=== PATIENT | male | born 1975 | race African-American/Black ===

== ENCOUNTER 2021-01-30 06:03 | Inpatient (IN) ==
[2021-01-24 11:28] LABS: Basophils # 0.1 10*3/uL (0.0-0.2); Basophils % 1.1 % (0.0-0.8); Eosinophils # 0.3 10*3/uL (0.0-0.87); Eosinophils % 6.2 % (0.00-10.9); Hematocrit 41.9 VOL% (42.0-52.0); Hemoglobin 13.1 GM/DL (14.0-18.0); Immature Granulocytes % 0.2 %; Immature Granulocytes Absolute 0.01 #; Lymphocytes # 2.8 10*3/uL (1.4-4.0); Mean Corpuscular HGB Conc 31.3 GM/DL (32-36); Mean Corpuscular Volume 87.7 FL (87-102); Mean Platelet Volume 10.6 FL (9.6-12.0); Monocytes % 5.6 % (1.7-12.7); Neutrophils % 36.9 % (38.7-73.9); Platelet Count 328 T/CUMM (130-400); Red Blood Count 4.78 MC/CUMM (3.8-5.5); White Blood Count 5.5 T/CUMM (4-12)
[2021-01-24 11:47] LABS: Albumin 4.1 G/DL (3.4-5.0); Bilirubin,Total 0.4 MG/DL (0.20-1.00); Calcium 9.4 MG/DL (8.5-10.1); Osmolality,Calculated 268.2 MOS/KG (273-304); Potassium 4.6 MMOL/L (3.5-5.1); Total Protein 8.1 G/DL (6.4-8.2)
[2021-01-24 11:48] LABS: Atypical Lymphocytes Few; Eosinophils 5 % (0-10); Hypochromasia 2+; Lymphocytes 50 % (20-55); Microcytosis Slight; Ovalocytes Few; Platelet Estimate Normal; Polychromasia Slight; Segmented Neutrophils 33 % (50-85); Total Cells Counted 100
[2021-01-30] MEDS ORDERED: FAMOTIDINE 20 MG TABLET PO ONE (06:23)
[2021-01-30] MEDS ORDERED: ALBUTEROL 2.5 MG/3 ML NEB RESP TX ONE (06:23)
[2021-01-30] MEDS ORDERED: DIAZEPAM 5 MG TABLET PO ONE (06:23)
[2021-01-30] MEDS ORDERED: cefTRIAXone 1,000 MG in SODIUM CHLORIDE 0.9% 100 ML IV ONE (06:30)
[2021-01-30] MEDS ORDERED: MIDAZOLAM 2 MG/2 ML VIAL ONE (06:32)
[2021-01-30] MEDS ORDERED: fentaNYL 100 MCG/2 ML VIAL ONE ×2 (06:32→08:36)
[2021-01-30] MEDS: LACTATED RINGERS 1,000 ML IV SCH ×2 (06:45→08:01)
[2021-01-30] MEDS ORDERED: PHENYLEPHRINE 10 MG/1 ML VIAL IV ONE (07:46)
[2021-01-30 08:30] LABS: Bilirubin,Urine Negative (Negative); Blood, Urine Negative (Negative); Glucose,Urine (UA) Negative (Negative); Ketones,Urine Negative (Negative); Mucus,Urine Occasional /LPF (Occasional); Nitrite,Urine Negative (Negative); Protein,Urine Negative; RBC,Urine 1 /HPF (0-4); Urine Appearance CLEAR (Clear); Urine Color Straw (Yellow); Urine Urobilinogen < 2.0 EU/DL (0.2-1.0)
[2021-01-30] MEDS ORDERED: propofoL 200 MG/20 ML VIAL IV ONE (08:36)
[2021-01-30] MEDS ORDERED: DEXAMETHASONE 4 MG/1 ML VIAL ONE (08:36)
[2021-01-30] MEDS ORDERED: ROCURONIUM 50 MG/5 ML VIAL IV ONE ×2 (08:36→09:15)
[2021-01-30] MEDS ORDERED: SEVOFLURANE 1 UNIT/15 MINUTE INH ONE (08:36)
[2021-01-30] MEDS ORDERED: LIDOCAINE 2% 5 ML VIAL ONE (08:36)
[2021-01-30] MEDS ORDERED: GLYCOPYRROLATE 0.4 MG/2 ML VIAL ONE ×2 (08:36→11:11)
[2021-01-30] MEDS ORDERED: ONDANSETRON 4 MG/2 ML VIAL ONE (08:36)
[2021-01-30] MEDS ORDERED: ACETAMINOPHEN INJ 1,000 MG/100 ML VIAL IV ONE (08:36)
[2021-01-30] MEDS ORDERED: NEOSTIGMINE 10 MG/10 ML VIAL ONE (11:11)
[2021-01-30] MEDS ORDERED: ROPIVACAINE 0.5% 30 ML VIAL ONE (11:15)
[2021-01-30] MEDS ORDERED: PROMETHAZINE 25 MG/1 ML VIAL IM PRN (11:23)
[2021-01-30] MEDS ORDERED: MAGNESIUM HYDROXIDE SUSP 30 ML UDCUP PO PRN (11:23)
[2021-01-30] MEDS ORDERED: HYDROmorphone 2 MG/1 ML VIAL IV PRN (11:23)
[2021-01-30] MEDS ORDERED: ONDANSETRON 4 MG/2 ML VIAL IV PRN (11:23)
[2021-01-30] MEDS ORDERED: LACTULOSE 20 GM/30 ML UDCUP PO PRN (11:23)
[2021-01-30] MEDS ORDERED: diphenhydrAMINE 50 MG/1 ML VIAL IV PRN (11:23)
[2021-01-30] MEDS ORDERED: FLUTICASONE 50 MCG NASAL SPRAY 16 GM BOTTLE BOTH NARES PRN (11:27)
[2021-01-30] MEDS ORDERED: ALBUTEROL 2.5 MG/3 ML NEB RESP TX PRN (11:27)
[2021-01-30] MEDS ORDERED: ALBUTEROL/IPRATROPIUM 3 ML NEB RESP TX PRN (11:28)
[2021-01-30] MEDS ORDERED: MEPERIDINE 25 MG/1 ML VIAL ONE (12:11)
[2021-01-30] MEDS: MEPERIDINE 25 MG/1 ML VIAL IV PRN ×2 (12:14→12:40)
[2021-01-30] MEDS ORDERED: hydrALAZINE 25 MG TABLET PO PRN (12:42)
[2021-01-30] MEDS ORDERED: hydrALAZINE 20 MG/1 ML VIAL ONE (12:49)
[2021-01-30] MEDS ORDERED: hydrALAZINE 20 MG/1 ML VIAL IV ONE (12:52)
[2021-01-30 13:14] LABS: Basophils % 0.2 % (0.0-0.8); Eosinophils % 0.2 % (0.00-10.9); Hematocrit 40.7 VOL% (42.0-52.0); Hemoglobin 12.7 GM/DL (14.0-18.0); Immature Granulocytes % 0.4 %; Immature Granulocytes Absolute 0.07 #; Lymphocytes # 1.7 10*3/uL (1.4-4.0); Lymphocytes % 10.2 % (21.2-54.2); Mean Corpuscular HGB Conc 31.2 GM/DL (32-36); Mean Corpuscular Volume 87.3 FL (87-102); Mean Platelet Volume 10.2 FL (9.6-12.0); Monocytes % 3.3 % (1.7-12.7); Neutrophils % 85.7 % (38.7-73.9); Platelet Count 262 T/CUMM (130-400); Red Blood Count 4.66 MC/CUMM (3.8-5.5); Red Cell Distribution Width 12.2 % (9.3-17.3); White Blood Count 16.2 T/CUMM (4-12)
[2021-01-30 13:31] LABS: Calcium 9.1 MG/DL (8.5-10.1); Osmolality,Calculated 276.8 MOS/KG (273-304); Potassium 4.2 MMOL/L (3.5-5.1)
[2021-01-30] MEDS: ALVIMOPAN 12 MG CAPSULE PO SCH ×2 (14:14→21:38)
[2021-01-30] MEDS: ACETAMINOPHEN 325 MG TABLET PO SCH ×3 (14:14→22:59)
[2021-01-30] MEDS: SODIUM CHLORIDE 0.9% 1,000 ML IV SCH (16:00)
[2021-01-30] MEDS: OXYBUTYNIN 5 MG TABLET PO SCH ×2 (16:00→21:38)
[2021-01-30] MEDS: FLUTICASONE/SALMETEROL 100-50 DISKUS 14 DOSE INH SCH (21:38)
[2021-01-30] MEDS: DOCUSATE SODIUM 100 MG CAPSULE PO SCH (21:38)
[2021-01-30] MEDS: FAMOTIDINE 20 MG TABLET PO SCH (21:38)
[2021-01-31] MEDS: SODIUM CHLORIDE 0.9% 1,000 ML IV SCH ×2 (00:20→06:17)
[2021-01-31] MEDS: oxyCODONE/ACETAMINOPHEN 5-325 MG TABLET PO PRN ×3 (03:08→19:08)
[2021-01-31 06:04] LABS: Hematocrit 36.6 VOL% (42.0-52.0); Hemoglobin 11.3 GM/DL (14.0-18.0); Immature Granulocytes % 0.6 %; Immature Granulocytes Absolute 0.06 #; Lymphocytes # 0.9 10*3/uL (1.4-4.0); Lymphocytes % 9.1 % (21.2-54.2); Mean Corpuscular HGB Conc 30.9 GM/DL (32-36); Mean Corpuscular Volume 88.2 FL (87-102); Mean Platelet Volume 10.6 FL (9.6-12.0); Monocytes % 9.3 % (1.7-12.7); Platelet Count 270 T/CUMM (130-400); Red Blood Count 4.15 MC/CUMM (3.8-5.5); Red Cell Distribution Width 12.3 % (9.3-17.3); White Blood Count 9.6 T/CUMM (4-12)
[2021-01-31] MEDS: ACETAMINOPHEN 325 MG TABLET PO SCH ×4 (06:17→23:10)
[2021-01-31 06:23] LABS: Calcium 8.6 MG/DL (8.5-10.1); Potassium 4.4 MMOL/L (3.5-5.1)
[2021-01-31] MEDS ORDERED: MAGNESIUM SULF RIDER 4 GM/100 ML PREMIX IV PRN (06:48)
[2021-01-31] MEDS ORDERED: MAGNESIUM SULF RIDER 2 GM/50 ML PREMIX IV PRN (06:48)
[2021-01-31] MEDS: OXYBUTYNIN 5 MG TABLET PO SCH ×3 (08:51→20:48)
[2021-01-31] MEDS: DOCUSATE SODIUM 100 MG CAPSULE PO SCH ×2 (08:51→20:48)
[2021-01-31] MEDS: ALVIMOPAN 12 MG CAPSULE PO SCH ×2 (08:51→20:48)
[2021-01-31] MEDS: FAMOTIDINE 20 MG TABLET PO SCH ×2 (08:51→20:48)
[2021-01-31] MEDS: FLUTICASONE/SALMETEROL 100-50 DISKUS 14 DOSE INH SCH ×2 (08:52→20:52)
[2021-01-31] MEDS: cefTRIAXone 1,000 MG in SODIUM CHLORIDE 0.9% 100 ML IV SCH (08:52)
[2021-02-01] MEDS: ACETAMINOPHEN 325 MG TABLET PO SCH ×3 (04:49→16:40)
[2021-02-01 05:46] LABS: Basophils % 0.2 % (0.0-0.8); Eosinophils % 0.1 % (0.00-10.9); Hematocrit 31.7 VOL% (42.0-52.0); Immature Granulocytes % 0.4 %; Immature Granulocytes Absolute 0.05 #; Mean Corpuscular HGB Conc 31.5 GM/DL (32-36); Mean Corpuscular Volume 86.8 FL (87-102); Mean Platelet Volume 10.7 FL (9.6-12.0); Monocytes % 11.4 % (1.7-12.7); Neutrophils % 70.9 % (38.7-73.9); Platelet Count 235 T/CUMM (130-400); Red Blood Count 3.65 MC/CUMM (3.8-5.5); Red Cell Distribution Width 12.6 % (9.3-17.3); White Blood Count 11.6 T/CUMM (4-12)
[2021-02-01 06:27] LABS: Calcium 8.4 MG/DL (8.5-10.1); Osmolality,Calculated 275.7 MOS/KG (273-304); Potassium 3.8 MMOL/L (3.5-5.1)
[2021-02-01] MEDS ORDERED: ALBUTEROL 2.5 MG/3 ML NEB RESP TX SCH (07:30)
[2021-02-01] MEDS: ALBUTEROL/IPRATROPIUM 3 ML NEB RESP TX SCH ×4 (07:55→19:35)
[2021-02-01] MEDS: cefTRIAXone 1,000 MG in SODIUM CHLORIDE 0.9% 100 ML IV SCH (11:23)
[2021-02-01] MEDS: OXYBUTYNIN 5 MG TABLET PO SCH ×3 (11:23→22:05)
[2021-02-01] MEDS: ALVIMOPAN 12 MG CAPSULE PO SCH ×2 (11:23→22:15)
[2021-02-01] MEDS: FLUTICASONE/SALMETEROL 100-50 DISKUS 14 DOSE INH SCH ×2 (11:23→22:05)
[2021-02-01] MEDS: FAMOTIDINE 20 MG TABLET PO SCH ×2 (11:23→22:04)
[2021-02-01] MEDS: DOCUSATE SODIUM 100 MG CAPSULE PO SCH ×2 (11:23→22:05)
[2021-02-01 13:26] LABS: Hematocrit 32.8 VOL% (42.0-52.0); Hemoglobin 10.1 GM/DL (14.0-18.0)
[2021-02-02] MEDS: ACETAMINOPHEN 325 MG TABLET PO SCH ×2 (00:20→05:16)
[2021-02-02] MEDS: ALBUTEROL/IPRATROPIUM 3 ML NEB RESP TX SCH ×4 (03:11→11:12)
[2021-02-02 05:48] LABS: Basophils # 0.1 10*3/uL (0.0-0.2); Basophils % 0.5 % (0.0-0.8); Eosinophils # 0.1 10*3/uL (0.0-0.87); Eosinophils % 1.1 % (0.00-10.9); Hematocrit 31.3 VOL% (42.0-52.0); Hemoglobin 9.7 GM/DL (14.0-18.0); Immature Granulocytes % 0.4 %; Immature Granulocytes Absolute 0.04 #; Lymphocytes # 2.5 10*3/uL (1.4-4.0); Lymphocytes % 22.7 % (21.2-54.2); Mean Corpuscular Volume 88.4 FL (87-102); Mean Platelet Volume 10.8 FL (9.6-12.0); Monocytes % 11.7 % (1.7-12.7); Neutrophils % 63.6 % (38.7-73.9); Platelet Count 241 T/CUMM (130-400); Red Blood Count 3.54 MC/CUMM (3.8-5.5); Red Cell Distribution Width 12.4 % (9.3-17.3)
[2021-02-02 06:02] LABS: Calcium 8.8 MG/DL (8.5-10.1); Osmolality,Calculated 271.8 MOS/KG (273-304); Potassium 3.5 MMOL/L (3.5-5.1)
[2021-02-02] MEDS ORDERED: POTASSIUM CHLORIDE 20 MEQ TABLET PO ONE (06:45)
[2021-02-02] MEDS: DOCUSATE SODIUM 100 MG CAPSULE PO SCH (08:57)
[2021-02-02] MEDS: OXYBUTYNIN 5 MG TABLET PO SCH (08:57)
[2021-02-02] MEDS: ALVIMOPAN 12 MG CAPSULE PO SCH (08:57)
[2021-02-02] MEDS: FAMOTIDINE 20 MG TABLET PO SCH (08:57)
[2021-02-02] MEDS: cefTRIAXone 1,000 MG in SODIUM CHLORIDE 0.9% 100 ML IV SCH (08:57)
[2021-02-02] MEDS: FLUTICASONE/SALMETEROL 100-50 DISKUS 14 DOSE INH SCH (08:58)
[2021-02-02 12:03] VITALS: BP 129/86
== END 2021-02-02 12:25 | disposition home or self-care (01) | DRG 707 ==
LOC: N.OR 06:03 → N.SDSINP 06:05 → N.3E 13:19
PROVIDERS: ADMIT Surgery; ATTEND Surgery

== ENCOUNTER 2021-02-03 01:55 | Observation (INO) ==
[2021-02-03] MEDS ORDERED: HYDROmorphone 2 MG/1 ML VIAL IV STA (02:16)
[2021-02-03] MEDS ORDERED: ONDANSETRON 4 MG/2 ML VIAL IV ONE (02:16)
[2021-02-03 02:45] LABS: Bacteria,Urine Occasional /HPF (Few); Bilirubin,Urine Negative (Negative); Blood, Urine Large mg/dL (Negative); Glucose,Urine (UA) Negative (Negative); Ketones,Urine Negative (Negative); Mucus,Urine Occasional /LPF (Occasional); Nitrite,Urine Negative (Negative); Protein,Urine 100 MG/DL; RBC,Urine <1 /HPF (0-4); Urine Appearance CLEAR (Clear); Urine Color Yellow (Yellow); Urine Specific Gravity 1.004 (1.001-1.035); Urine Urobilinogen < 2.0 EU/DL (<2.0)
[2021-02-03 02:53] LABS: Basophils # 0.1 10*3/uL (0.0-0.2); Basophils % 0.6 % (0.0-0.8); Eosinophils # 0.3 10*3/uL (0.0-0.87); Eosinophils % 3.1 % (0.00-10.9); Hematocrit 32.2 VOL% (42.0-52.0); Hemoglobin 10.1 GM/DL (14.0-18.0); Immature Granulocytes % 0.4 %; Immature Granulocytes Absolute 0.04 #; Lymphocytes # 2.6 10*3/uL (1.4-4.0); Lymphocytes % 26.3 % (21.2-54.2); Mean Corpuscular HGB Conc 31.4 GM/DL (32-36); Mean Platelet Volume 10.7 FL (9.6-12.0); Monocytes % 10.1 % (1.7-12.7); Neutrophils % 59.5 % (38.7-73.9); Platelet Count 310 T/CUMM (130-400); Red Blood Count 3.66 MC/CUMM (3.8-5.5); Red Cell Distribution Width 12.4 % (9.3-17.3); White Blood Count 9.7 T/CUMM (4-12)
[2021-02-03 03:14] LABS: Albumin 3.1 G/DL (3.4-5.0); Bilirubin,Total 0.4 MG/DL (0.20-1.00); Calcium 8.8 MG/DL (8.5-10.1); Osmolality,Calculated 276.8 MOS/KG (273-304); Total Protein 7.5 G/DL (6.4-8.2)
[2021-02-03] MEDS ORDERED: ALUM/MAG/SIMETH/LIDO VISC 1:1 30 ML BOTTLE PO STA ×2 (03:31→03:33)
[2021-02-03] MEDS ORDERED: PIPERACILLIN/TAZOBACTAM 3,375 MG in SODIUM CHLORIDE 0.9% 100 ML IV STA (03:31)
[2021-02-03] MEDS ORDERED: ALUM/MAG/SIMETH/LIDO VISC 1:1 30 ML BOTTLE PO ONE (03:32)
[2021-02-03] MEDS ORDERED: ONDANSETRON 4 MG/2 ML VIAL IV PRN (03:38)
[2021-02-03] MEDS ORDERED: HYDROmorphone 2 MG/1 ML VIAL IV PRN ×2 (03:38→09:52)
[2021-02-03] MEDS ORDERED: SODIUM CHLORIDE 0.45% 1,000 ML IV SCH (04:00)
[2021-02-03] MEDS ORDERED: oxyCODONE IR 5 MG TABLET PO PRN (09:51)
[2021-02-03] MEDS: ACETAMINOPHEN 325 MG TABLET PO SCH ×3 (10:04→21:51)
[2021-02-03] MEDS: OXYBUTYNIN XL 5 MG TABLET PO SCH (10:04)
[2021-02-03] MEDS: PIPERACILLIN/TAZOBACTAM 3,375 MG in SODIUM CHLORIDE 0.9% 100 ML IV SCH ×2 (14:25→21:00)
[2021-02-03] MEDS: OXYBUTYNIN 5 MG TABLET PO SCH ×2 (14:28→21:48)
[2021-02-03] MEDS: DOCUSATE SODIUM 100 MG CAPSULE PO SCH (21:48)
[2021-02-04] MEDS: ACETAMINOPHEN 325 MG TABLET PO SCH ×2 (04:27→10:02)
[2021-02-04] MEDS: PIPERACILLIN/TAZOBACTAM 3,375 MG in SODIUM CHLORIDE 0.9% 100 ML IV SCH ×2 (04:28→13:16)
[2021-02-04 04:50] LABS: Basophils % 0.6 % (0.0-0.8); Eosinophils # 0.4 10*3/uL (0.0-0.87); Eosinophils % 5.5 % (0.00-10.9); Hematocrit 30.7 VOL% (42.0-52.0); Hemoglobin 9.5 GM/DL (14.0-18.0); Immature Granulocytes % 0.4 %; Immature Granulocytes Absolute 0.03 #; Lymphocytes # 1.9 10*3/uL (1.4-4.0); Lymphocytes % 27.4 % (21.2-54.2); Mean Corpuscular HGB Conc 30.9 GM/DL (32-36); Mean Corpuscular Volume 87.7 FL (87-102); Mean Platelet Volume 9.7 FL (9.6-12.0); Monocytes % 9.2 % (1.7-12.7); Neutrophils % 56.9 % (38.7-73.9); Platelet Count 338 T/CUMM (130-400); Red Cell Distribution Width 12.2 % (9.3-17.3)
[2021-02-04 05:11] LABS: Calcium 8.6 MG/DL (8.5-10.1); Osmolality,Calculated 272.7 MOS/KG (273-304); Potassium 4.1 MMOL/L (3.5-5.1)
[2021-02-04] MEDS ORDERED: POLYETHYLENE GLYCOL POWDER 17 GM PACK PO SCH (09:00)
[2021-02-04] MEDS: DOCUSATE SODIUM 100 MG CAPSULE PO SCH (10:02)
[2021-02-04] MEDS: OXYBUTYNIN 5 MG TABLET PO SCH (10:02)
[2021-02-04 11:48] VITALS: BP 142/92
[2021-02-04] MEDS: OXYBUTYNIN XL 5 MG TABLET PO SCH (13:16)
== END 2021-02-04 13:21 | disposition home or self-care (01) ==
LOC: N.EDINP 01:55 → N.ED 01:55 → N.5E 06:12
PROVIDERS: ADMIT Surgery; ATTEND Surgery